=== PATIENT | male | born 1945 | race Caucasian/White ===

== ENCOUNTER 2017-04-25 17:23 | Emergency (ER) | payer BC, MEDICARE ==
--- NOTE | 2017-04-25 17:53 | Emergency Department Record ---
History of Present Illness - General Chief complaint: Male Urogenital Problem Stated complaint: urinating blood Time Seen by Provider: 04/25/17 17:49 Source: Patient Mode of Arrival: Ambulatory - History of Present Illness Initial comments: The patient had a left kidney biopsy per Dr. Avelar on Saturday04-22-17. He has had no problems with it since. He denies any pain, discomfort, AP, or even tenderness at the site. Today he noticed blood in the urine, called doctor Valentino who requested he come in and get checked since her office is closed. He denies f,c,n,v,d,ap, URI symptoms, or any other problems. MD Complaint: Other (hematuria) Onset/Timin -: Days(s) Radiation: None Consistency: Intermittent Improves with: None Worsens with: None Reports: Blood in urine - Related Data Home Medications Medication Instructions Recorded Confirmed Last Taken Amlodipine Besylate [Norvasc] 10 mg PO DAILY 04/25/17 04/25/17 Unknown Aspirin [Aspir-Low] 81 mg PO DAILY 04/25/17 04/25/17 Unknown Doxazosin Mesylate [Cardura] 2 mg PO DAILY 04/25/17 04/25/17 Unknown Famotidine [Pepcid] 20 mg PO DAILY 04/25/17 04/25/17 Unknown Finasteride [Proscar] 5 mg PO DAILY 04/25/17 04/25/17 Unknown Furosemide [Furosemide] 40 mg PO DAILY 04/25/17 04/25/17 Unknown Insulin Glargine,Hum.rec.anlog 35 unit SQ BID 04/25/17 04/25/17 Unknown [Lantus] Losartan Potassium [Cozaar] 100 mg PO DAILY 04/25/17 04/25/17 Unknown Metoprolol Succinate [Toprol Xl] 100 mg PO DAILY 04/25/17 04/25/17 Unknown Pravastatin Sodium [Pravachol] 80 mg PO DAILY 04/25/17 04/25/17 Unknown Allergies Allergy/AdvReac Type Severity Reaction Status Date / Time tetanus toxoid, adsorbed AdvReac Severe throat Unverified 04/25/17 17:43 [TETANUS TOXOID, ADSORBED] swells shut, hives Travel Screening - Travel/Exposure Within Last 30 Days Have you traveled within the last 30 days?: No Review of Systems Reviewed: No additional complaints except as noted below Constitutional: Reports: As per HPI. Denies: Chills, Fever, Malaise, Night sweats, Weakness, Weight change Eyes: Reports: As per HPI. Denies: Eye discharge, Eye pain, Photophobia, Vision change ENT: Reports: As per HPI. Denies: Congestion, Dental pain, Ear pain, Epistaxis , Hearing loss, Throat pain Respiratory: Reports: As per HPI. Denies: Cough, Dyspnea, Hemoptysis, Stridor, Wheezes Cardiovascular: Reports: As per HPI. Denies: Arrhythmia, Chest pain, Dyspnea on exertion, Edema, Murmurs, Orthopnea, Palpitations, Paroxysmal nocturnal dyspnea, Rheumatic Fever, Syncope Endocrine: Reports: As per HPI. Denies: Fatigue, Heat or cold intolerance, Polydipsia, Polyuria Gastrointestinal: Reports: As per HPI. Denies: Abdominal pain, Constipation, Diarrhea, Hematemesis, Hematochezia, Melena, Nausea, Vomiting Genitourinary: Reports: As per HPI. Denies: Dysuria, Frequency, Hematuria, Incontinence, Retention, Testicular pain, Testicular mass, Urgency Musculoskeletal: Reports: As per HPI. Denies: Arthralgia, Back pain, Gout, Joint swelling, Myalgia, Neck pain Skin: Reports: As per HPI. Denies: Bruising, Change in color, Change in hair/ nails, Lesions, Pruritus, Rash Neurological: Reports: As per HPI. Denies: Abnormal gait, Confusion, Headache, Numbness, Paresthesias, Seizure, Tingling, Tremors, Vertigo, Weakness Psychiatric: Reports: As per HPI. Denies: Anxiety, Auditory hallucinations, Depression, Homicidal thoughts, Suicidal thoughts, Visual hallucinations Hematological/Lymphatic: Reports: As per HPI. Denies: Anemia, Blood Clots, Easy bleeding, Easy bruising, Swollen glands Past Medical History - SOCIAL HISTORY Smoking Status: Current every day smoker Alcohol Use: None Drug Use: None - RESPIRATORY Hx Respiratory Disorders: No - CARDIOVASCULAR Hx Cardio Disorders: Yes Hx Cardiac Cath: Yes (stents x2) Hx Hypertension: Yes - NEURO Hx Neuro Disorders: No - GI Hx GI Disorders: Yes Hx Irritable Bowel: Yes - Hx Genitourinary Disorders: No - ENDOCRINE Hx Endocrine Disorders: Yes Hx Diabetes: Yes - MUSCULOSKELETAL Hx Musculoskeletal Disorders: No - PSYCH Hx Psych Problems: No - HEMATOLOGY/ONCOLOGY Hx Hematology/Oncology Disorders: No Family Medical History Any Significant Family History?: Yes Hx Cancer: Father, Mother Physical Exam - General General Appearance: Alert, Oriented x3, Cooperative, No acute distress - Head Head exam: Normal inspection - Eye Eye exam: Normal appearance, PERRL Pupils: Normal accommodation - ENT ENT exam: Normal exam, Mucous membranes moist, Normal external ear exam, Normal orophraynx, TM's normal bilaterally Ear exam: Normal external inspection. negative: External canal tenderness Nasal Exam: Normal inspection. negative: Discharge, Sinus tenderness Mouth exam: Normal external inspection, Tongue normal Teeth exam: Normal inspection. negative: Dental caries Throat exam: Normal inspection. negative: Tonsillar erythema, Tonsillar exudate - Neck Neck exam: Normal inspection, Full ROM. negative: Tenderness - Respiratory Respiratory exam: Normal lung sounds bilaterally. negative: Respiratory distress - Cardiovascular Cardiovascular Exam: Regular rate, Normal rhythm, Normal heart sounds - GI/Abdominal GI/Abdominal exam: Soft, Normal bowel sounds. negative: Tenderness - Rectal Rectal exam: Deferred - exam: Deferred - Extremities Extremities exam: Normal inspection, Full ROM, Normal capillary refill. negative: Tenderness - Back Back exam: Reports: Normal inspection, Full ROM, Other (left posterior lateral puncture site beneath bandage is clean and dry and nontender). 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 Avelar who requests a CBC in be sure there is no sigificant internal bleeding from the procedure. 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 If not anemic, discharge home. Searching for an prior recent hemoglobin from his procedure. 04/25/17 18:38 04/25/17 18:42 Medical Decision Making - Management Options MDM Management: No Additional Work-up Planned - Data Complexity MDM Data: Labs Ordered and/or Reviewed - Lab Data Result diagrams: 04/25/17 18:35 04/25/17 18:35 Disposition Disposition: Discharge Clinical Impression: Hematuria, Status post biopsy of kidney Disposition: Home, Self-Care Condition: (1) Good Instructions: Hematuria (ED) Additional Instructions: Home, rest. Push fluids. Follow up with PCP and Dr. Avelar as previously instructed. Forms: Patient Portal Access
[2017-04-25 17:59] LABS: URINE BILIRUBIN NEGATIVE (NEGATIVE); URINE BLOOD LARGE (NEGATIVE); URINE COLOR YELLOW; URINE GLUCOSE (UA) NEGATIVE (NEGATIVE); URINE KETONE NEGATIVE (NEGATIVE); URINE LEUKOCYTE ESTERASE NEGATIVE (NEGATIVE); URINE NITRITE NEGATIVE (NEGATIVE); URINE UROBILINOGEN 0.2 E.U./dL (0.20 - 1.00)
[2017-04-25 18:00] LABS: URINE PROTEIN 300 mg/dL (NEGATIVE)
[2017-04-25 18:03] LABS: URINE APPEARANCE BLOODY; URINE BACTERIA NONE SEEN; URINE EPITHELIAL CELLS NONE SEEN (FEW); URINE WBC NONE SEEN (0-2/hpf)
[2017-04-25 18:43] LABS: BASO % 0.5 % (0-6); EOS % 2.8 % (0-6); GRAN % 63.8 % (47-80); HEMATOCRIT 37.2 % (42.0-52.0); HEMOGLOBIN 12.8 gm/dl (14.0-18.0); LYMPH % 19.4 % (16-45); MEAN CELL VOLUME 85.5 fl (81-97); MEAN CORPUSCULAR HEMOGLOBIN 29.4 pg (27-33); MEAN CORPUSCULAR HGB CONC 34.4 g/dl (32-36); MEAN PLATELET VOLUME 11.6 fl (7.4-10.4); MONO % 13.5 % (0-9); PLATELET COUNT 120 K/uL (130-400); RED BLOOD COUNT 4.35 M/uL (4.40-5.70); RED CELL DISTRIBUTION WIDTH 14.2 % (11.5-14.5); WHITE BLOOD COUNT W/O DIFF 6.5 K/uL (4.2-12.2)
[2017-04-25 18:55] LABS: ANION GAP 9.9 (7-16); CARBON DIOXIDE 21.1 mmol/L (22-30); CREATININE 2.6 mg/dL (0.66-1.25)
--- NOTE | 2017-04-25 20:16 | Emergency Department Record ---
History of Present Illness - General Chief complaint: Male Urogenital Problem Stated complaint: urinating blood Time Seen by Provider: 04/25/17 17:49 Source: Patient Mode of Arrival: Ambulatory - History of Present Illness Onset/Timin -: Days(s) Radiation: None Consistency: Intermittent Improves with: None Worsens with: None Reports: Blood in urine - Related Data Home Medications Medication Instructions Recorded Confirmed Last Taken Amlodipine Besylate [Norvasc] 10 mg PO DAILY 04/25/17 04/25/17 Unknown Aspirin [Aspir-Low] 81 mg PO DAILY 04/25/17 04/25/17 Unknown Doxazosin Mesylate [Cardura] 2 mg PO DAILY 04/25/17 04/25/17 Unknown Famotidine [Pepcid] 20 mg PO DAILY 04/25/17 04/25/17 Unknown Finasteride [Proscar] 5 mg PO DAILY 04/25/17 04/25/17 Unknown Furosemide [Furosemide] 40 mg PO DAILY 04/25/17 04/25/17 Unknown Insulin Glargine,Hum.rec.anlog 35 unit SQ BID 04/25/17 04/25/17 Unknown [Lantus] Losartan Potassium [Cozaar] 100 mg PO DAILY 04/25/17 04/25/17 Unknown Metoprolol Succinate [Toprol Xl] 100 mg PO DAILY 04/25/17 04/25/17 Unknown Pravastatin Sodium [Pravachol] 80 mg PO DAILY 04/25/17 04/25/17 Unknown Allergies Allergy/AdvReac Type Severity Reaction Status Date / Time tetanus toxoid, adsorbed AdvReac Severe throat Unverified 04/25/17 17:43 [TETANUS TOXOID, ADSORBED] swells shut, hives Travel Screening - Travel/Exposure Within Last 30 Days Have you traveled within the last 30 days?: No Review of Systems Constitutional: Reports: As per HPI. Denies: Chills, Fever, Malaise, Night sweats, Weakness, Weight change Eyes: Reports: As per HPI. Denies: Eye discharge, Eye pain, Photophobia, Vision change ENT: Reports: As per HPI. Denies: Congestion, Dental pain, Ear pain, Epistaxis , Hearing loss, Throat pain Respiratory: Reports: As per HPI. Denies: Cough, Dyspnea, Hemoptysis, Stridor, Wheezes Cardiovascular: Reports: As per HPI. Denies: Arrhythmia, Chest pain, Dyspnea on exertion, Edema, Murmurs, Orthopnea, Palpitations, Paroxysmal nocturnal dyspnea, Rheumatic Fever, Syncope Endocrine: Reports: As per HPI. Denies: Fatigue, Heat or cold intolerance, Polydipsia, Polyuria Gastrointestinal: Reports: As per HPI. Denies: Abdominal pain, Constipation, Diarrhea, Hematemesis, Hematochezia, Melena, Nausea, Vomiting Genitourinary: Reports: As per HPI. Denies: Dysuria, Frequency, Hematuria, Incontinence, Retention, Testicular pain, Testicular mass, Urgency Musculoskeletal: Reports: As per HPI. Denies: Arthralgia, Back pain, Gout, Joint swelling, Myalgia, Neck pain Skin: Reports: As per HPI. Denies: Bruising, Change in color, Change in hair/ nails, Lesions, Pruritus, Rash Neurological: Reports: As per HPI. Denies: Abnormal gait, Confusion, Headache, Numbness, Paresthesias, Seizure, Tingling, Tremors, Vertigo, Weakness Psychiatric: Reports: As per HPI. Denies: Anxiety, Auditory hallucinations, Depression, Homicidal thoughts, Suicidal thoughts, Visual hallucinations Hematological/Lymphatic: Reports: As per HPI. Denies: Anemia, Blood Clots, Easy bleeding, Easy bruising, Swollen glands Past Medical History - SOCIAL HISTORY Smoking Status: Current every day smoker Alcohol Use: None Drug Use: None - RESPIRATORY Hx Respiratory Disorders: No - CARDIOVASCULAR Hx Cardio Disorders: Yes Hx Cardiac Cath: Yes (stents x2) Hx Hypertension: Yes - NEURO Hx Neuro Disorders: No - GI Hx GI Disorders: Yes Hx Irritable Bowel: Yes - Hx Genitourinary Disorders: No - ENDOCRINE Hx Endocrine Disorders: Yes Hx Diabetes: Yes - MUSCULOSKELETAL Hx Musculoskeletal Disorders: No - PSYCH Hx Psych Problems: No - HEMATOLOGY/ONCOLOGY Hx Hematology/Oncology Disorders: No Family Medical History Any Significant Family History?: Yes Hx Cancer: Father, Mother Course Vital Signs 04/25/17 04/25/17 17:34 19:25 Temperature 98.2 F Pulse Rate 67 59 L Respiratory 16 20 Rate Blood Pressure 159/83 166/88 Pulse Ox 97 99 - Reevaluation(s) Reevaluation #1: The patient has been waiting here for his old labs from [facility] and from his urologist for over 2 hours. He states he must leave because he has a very ill with cancer at home. He agrees to follow in the office tomorrow with his urologist who originally was going to recheck him then anyway. His labs from [facility] from 04-22-17 were BUN 41 and CR 2.8. Today's are BUN 51 and CR 2.6. He has had 3 large glasses of water here, about 1400 cc's and just urinated again and this time his urine was clear to the naked eye. Will discharge him home with follow up in the morning with his urologist. 04/25/17 20:12 Medical Decision Making - Lab Data Result diagrams: 04/25/17 18:35 04/25/17 18:35 Lab Results 04/25/17 04/25/17 04/25/17 Range/Units 17:50 18:35 18:35 WBC 6.5 (4.2-12.2) K/uL RBC 4.35 L (4.40-5.70) M/uL Hgb 12.8 L (14.0-18.0) gm/dl Hct 37.2 L (42.0-52.0) % MCV 85.5 (81-97) fl MCH 29.4 (27-33) pg MCHC 34.4 (32-36) g/dl RDW 14.2 (11.5-14.5) % Plt Count 120 L (130-400) K/uL MPV 11.6 H (7.4-10.4) fl Gran % 63.8 (47-80) % Lymphocytes % 19.4 (16-45) % Monocytes % 13.5 H (0-9) % Eosinophils % 2.8 (0-6) % Basophils % 0.5 (0-6) % Sodium 135 L (136-145) mmol/L Potassium 3.8 (3.5-5.1) mmol/L Chloride 104 (98-107) mmol/L Carbon Dioxide 21.1 L (22-30) mmol/L Anion Gap 9.9 (7-16) BUN 51 H (9-20) mg/dL Creatinine 2.6 H (0.66-1.25) mg/dL Estimated GFR 26 ml/min Random Glucose 164 H (70-110) mg/dL Calcium 9.4 (8.5-10.1) mg/dL Urine Color Yellow Urine Appearance Bloody H Urine pH 5.5 (5.0-8.0) Ur Specific [place] 1.025 (1.002-1.030) Urine Protein 300 mg/dl H (NEGATIVE) Urine Glucose (UA) Negative (NEGATIVE) Urine Ketones Negative (NEGATIVE) Urine Blood Large H (NEGATIVE) Urine Nitrite Negative (NEGATIVE) Urine Bilirubin Negative (NEGATIVE) Urine Urobilinogen 0.2 (0.20 - 1.00) E.U./dL Ur Leukocyte Esterase Negative (NEGATIVE) Urine RBC Too numerous to cnt (NONE SEEN) Urine WBC None seen (0-2/hpf) Ur Epithelial Cells None seen (FEW) Urine Bacteria None seen Disposition Clinical Impression: Hematuria, Status post biopsy of kidney Disposition: Home, Self-Care Condition: (1) Good Instructions: Hematuria (ED) Additional Instructions: Home, rest. Push fluids. Follow up with PCP and Dr. Avelar as previously instructed. Forms: Patient Portal Access
== END 2017-04-25 20:27 | disposition home or self-care (01) ==
LOC: ER 17:23
DX: R31.0 Gross hematuria (principal); Z98.890 Other specified postprocedural states; I10 Essential (primary) hypertension; F17.210 Nicotine dependence, cigarettes, uncomplicated
CPT/HCPCS: 80048; 81001; 85025; 99283

== ENCOUNTER 2018-09-25 14:46 | Emergency (ER) | payer BC ==
[2018-09-25 15:11] LABS: BASO % 0.6 % (0-6); EOS % 3.2 % (0-6); GRAN % 63.7 % (47-80); HEMATOCRIT 31.4 % (42.0-52.0); HEMOGLOBIN 11.2 gm/dl (14.0-18.0); LYMPH % 20.3 % (16-45); MEAN CELL VOLUME 84.2 fl (81-97); MEAN CORPUSCULAR HGB CONC 35.7 g/dl (32-36); MEAN PLATELET VOLUME 10.8 fl (7.4-10.4); MONO % 12.2 % (0-9); PLATELET COUNT 146 K/uL (130-400); RED BLOOD COUNT 3.73 M/uL (4.40-5.70); RED CELL DISTRIBUTION WIDTH 14.8 % (11.5-14.5); WHITE BLOOD COUNT W/O DIFF 6.9 K/uL (4.2-12.2)
--- NOTE | 2018-09-25 15:18 | Emergency Department Record ---
History of Present Illness - General Chief complaint: Weakness Stated complaint: WEAK, CONFUSION Time Seen by Provider: 09/25/18 14:59 Source: Patient, Family Mode of Arrival: Ambulatory Limitations: No limitations - History of Present Illness Initial comments: The patient is here due to waking up this AM weak all over and unsteady on his feet. Per the patient's he has been mildly confused at times and unable to walk in a straight line. The patient denies any recent illnesses, cough, fever, CP, SOB, AP or back pain. The patient does have a hx of renal failure and diabetes and states his PD fluid has been clear but may be "smelly" a little. MD Complaint: Generalized weakness Onset/Timin -: Days(s) Location: Generalized Improves with: None Worsens with: None Associated Symptoms: Denies other symptoms - Rachid Coma Scale Eye Response: (4) Open spontaneously Motor Response: (6) Obeys commands Verbal Response: (5) Oriented [place] Total: 15 - Related Data Home Medications Medication Instructions Recorded Confirmed Last Taken Cholestyramine (with Sugar) 378 gm PO DAILY 09/25/18 09/25/18 09/25/18 [Questran Powder] Clonidine HCl [Catapres] 0.1 mg PO TID 09/25/18 09/25/18 09/25/18 Gabapentin [Neurontin] 100 mg PO DAILY 09/25/18 09/25/18 09/25/18 Hydrochlorothiazide [Microzide] 12.5 mg PO DAILY 09/25/18 09/25/18 09/25/18 Allergies Allergy/AdvReac Type Severity Reaction Status Date / Time tetanus toxoid, adsorbed AdvReac Severe throat Verified 09/25/18 14:49 [TETANUS TOXOID, ADSORBED] swells shut, hives Travel Screening - Travel/Exposure Within Last 30 Days Have you traveled within the last 30 days?: No Review of Systems Constitutional: Reports: Malaise. Denies: Chills, Fever Eyes: Denies: Eye discharge ENT: Denies: Congestion Respiratory: Denies: Cough, Dyspnea Cardiovascular: Denies: Arrhythmia, Chest pain Endocrine: Reports: Fatigue Gastrointestinal: Denies: Diarrhea, Nausea, Vomiting Genitourinary: Denies: Dysuria Musculoskeletal: Denies: Arthralgia Skin: Denies: Bruising Past Medical History - SOCIAL HISTORY Smoking Status: Current every day smoker Alcohol Use: None Drug Use: None - RESPIRATORY Hx Respiratory Disorders: No - CARDIOVASCULAR Hx Cardio Disorders: Yes Hx Cardiac Cath: Yes (stents x2) Hx Hypertension: Yes - NEURO Hx Neuro Disorders: No - GI Hx GI Disorders: Yes Hx Irritable Bowel: Yes - Hx Genitourinary Disorders: Yes Hx Prostate Problems: Yes (CA-removed) Hx Renal Disease: Yes (dialysis every day at home) - ENDOCRINE Hx Endocrine Disorders: Yes Hx Diabetes: Yes - MUSCULOSKELETAL Hx Musculoskeletal Disorders: No - PSYCH Hx Psych Problems: No - HEMATOLOGY/ONCOLOGY Hx Hematology/Oncology Disorders: No Hx Cancer: Yes (prostate) Family Medical History Any Significant Family History?: Yes Hx Cancer: Father, Mother Physical Exam - General General Appearance: Alert, Oriented x3, Cooperative, No acute distress - Head Head exam: Atraumatic, Normocephalic, Normal inspection - Eye Eye exam: Normal appearance, PERRL, EOMI - Neck Neck exam: Normal inspection, Full ROM. negative: Tenderness - Respiratory Respiratory exam: Normal lung sounds bilaterally. negative: Respiratory distress - Cardiovascular Cardiovascular Exam: Regular rate, Normal rhythm, Normal heart sounds - GI/Abdominal GI/Abdominal exam: Soft, Normal bowel sounds, Distended. negative: Guarding, Rebound, Rigid, Tenderness - Extremities Extremities exam: Normal inspection, Full ROM, Normal capillary refill. negative: Tenderness - Neurological Neurological exam: Abnormal gait, Alert, Oriented X3. negative: Altered, Motor sensory deficit, Normal gait - Psychiatric Psychiatric exam: negative: Anxious Course Vital Signs 09/25/18 14:52 Temperature 97.8 F Pulse Rate 65 Respiratory 16 Rate Blood Pressure 160/89 Pulse Ox 100 - Reevaluation(s) Reevaluation #1: The patient is doing OK at this time. He denies any pain or discomfort. I did explain the need for further evaluation with him and do believe he will need to be admitted to the hospital. Due to the fact the patient is a peritoneal dialysis patient and his Neprologist is at [facility] [place] I did recommend going there and the patient agreed. 09/25/18 16:35 Reevaluation #2: I did discuss the case with Dr. Matthews at [facility] and he does accept the patient in transfer to the hospital there. 09/25/18 16:45 Medical Decision Making - Data Complexity MDM Data: Labs Ordered and/or Reviewed, X-Ray Ordered and/or Reviewed, EKG Ordered and/or Reviewed - Lab Data Result diagrams: 09/25/18 15:00 09/25/18 15:00 Lab Results 09/25/18 Range/Units 15:00 WBC 6.9 (4.2-12.2) K/uL RBC 3.73 L (4.40-5.70) M/uL Hgb 11.2 L (14.0-18.0) gm/dl Hct 31.4 L (42.0-52.0) % MCV 84.2 (81-97) fl MCH 30.0 (27-33) pg MCHC 35.7 (32-36) g/dl RDW 14.8 H (11.5-14.5) % Plt Count 146 (130-400) K/uL MPV 10.8 H (7.4-10.4) fl Gran % 63.7 (47-80) % Lymphocytes % 20.3 (16-45) % Monocytes % 12.2 H (0-9) % Eosinophils % 3.2 (0-6) % Basophils % 0.6 (0-6) % - EKG Data -: EKG Interpreted by Nd EKG: No Acute Changes - Radiology Data Radiology results: Report reviewed (Head CT: Neg for acute process. L sided arachnoid cyst over Temporal lobe.) Disposition Disposition: Transfer Clinical Impression: Confusion Disposition: Acute Care Hospital Transfer Transfer To: [facility] Reason For Transfer: Renal Failure Accepting Physician: Cassie Time Discussed w/Accepting Physician: 16:46 Condition: (2) Stable Forms: Patient Portal Access Time of Disposition: 16:46 Quality - Quality Measures Quality Measures: N/A - Blood Pressure Screening View Details: Yes Does Patient Have Any of the Following: No Blood Pressure Classification: Pre-Hypertensive BP Reading Systolic Measurement: 160 Diastolic Measurement: 89 Screening for High Blood Pressure: < Pre-Hypertensive BP, F/U Documented > [ [id number]] Pre-Hypertensive Follow-up Interventions: Referral to alternative/primary care provider.
[2018-09-25 15:22] LABS: BILIRUBIN,TOTAL 0.4 mg/dL (0.2-1.0); CREATININE 4.9 mg/dL (0.7-1.2)
[2018-09-25 15:23] LABS: TOTAL PROTEIN 6.7 g/dL (6.6-8.7)
[2018-09-25 15:24] LABS: PARTIAL THROMBOPLASTIN TIME 28.5 SECONDS (24.5-39.1)
[2018-09-25 15:27] LABS: ALB/GLOB RATIO 1.2 (1.1-1.8); ALBUMIN 3.7 g/dL (4.0-5.0)
[2018-09-25 15:30] LABS: CKMB 4.2 ng/mL (<6.73)
--- NOTE | 2018-09-27 10:27 | CT SCAN REPORT ---
DATE: 09/25/2018. EXAM: CT OF THE HEAD. HISTORY: THE PATIENT HAS A HISTORY OF WEAKNESS AND DIZZINESS. TECHNIQUE: Serial axial CT scan of the head was performed at 2.5 mm intervals from the base of the skull to the apex without the use of intravenous contrast. Sagittal and coronal reconstruction views are provided COMPARISON: No comparison CTs are available. FINDINGS: The ventricles, cisterns, and sulci appear within normal limits with respect size, shape, and attenuation. Within the left anterior inferotemporal fossa, there is an 11 mm x 35 mm focus of cerebrospinal fluid attenuation within the extra-axial space. This finding creates minimal mass effect upon the left anterior temporal lobe. This finding likely represents an arachnoid cyst. No other suspicious mass lesions are identified. The great white differentiation appears within normal limits. There is no CT evidence of intra- or extra-axial fluid collection to suggest bleeding. The bone windows demonstrate no CT evidence of any fracture or dislocation of the skull. The paranasal sinuses are unremarkable. IMPRESSION: 1. NO CT EVIDENCE OF AN ACUTE INTRACRANIAL PROCESS. 2. A SMALL ARACHNOID CYST IS NOTED WITHIN THE LEFT ANTERIOR INFEROTEMPORAL FOSSA. JOB NUMBER: [id number] MTDD
== END 2018-09-25 17:54 | disposition short-term general hospital (02) ==
LOC: ER 14:46
DX: R41.0 Disorientation, unspecified (principal); R53.1 Weakness; G93.0 Cerebral cysts; I12.0 Hypertensive chronic kidney disease with stage 5 chronic kidney disease or end stage renal disease; N18.6 End stage renal disease; F17.210 Nicotine dependence, cigarettes, uncomplicated; Z85.46 Personal history of malignant neoplasm of prostate
CPT/HCPCS: 70450; 80053; 82550; 82553; 84484; 85025; 85610; 85730; 86140; 93005; 93010; 99285